=== PATIENT | female | born 1940 | race Caucasian/White ===

== ENCOUNTER 2019-11-09 20:58 | Emergency (ER) | payer MEDICARE, OTHER ==
[2019-11-09] MEDS ORDERED: LORazepam 0.5 MG Tab PO ONE (21:33)
[2019-11-09] MEDS ORDERED: Diphtheria,Pertussis(Acell),Tetanus Vaccine 0.5 ML Syringe IM ONE (21:33)
[2019-11-09] MEDS ORDERED: Lidocaine 1% 10 ML MDV INJECT ONE (21:33)
[2019-11-09] MEDS ORDERED: LORazepam 0.5 MG Tab ONE (22:17)
--- NOTE | 2019-11-09 22:23 | EDM.PDOC ---
ED HPI GENERAL MEDICAL PROBLEM - General Chief Complaint: Laceration Stated Complaint: LACERATION TO RT FOREARM Time Seen by Provider: 11/09/19 21:15 Source of Information: Reports: Patient History Limitations: Reports: No Limitations - History of Present Illness INITIAL COMMENTS - FREE TEXT/NARRATIVE: Patient is a 79-year-old female who presents to the emergency department with complaints of a laceration to her right forearm. She states that she was in [employer] shopping for earrings. She reached up to grab a pair of earrings and the display came down hitting her on the arm. EMS was on scene and provided wound care. She came in by private vehicle. She is unsure when her last tetanus vaccination was. Right Arm Pain Score (Numeric/FACES): 8 - Related Data Allergies Allergy/AdvReac Type Severity Reaction Status Date / Time codeine Allergy Itching Verified 11/09/19 21:18 hydromorphone [From Dilaudid] Allergy Respiratory Verified 11/09/19 21:18 Depression Penicillins Allergy Hives Verified 11/09/19 21:18 Past Medical History HEENT History: Reports: Macular Degeneration Cardiovascular History: Reports: High Cholesterol, Hypertension Gastrointestinal History: Reports: Bowel Obstruction Social & Family History - Tobacco Use Smoking Status *Q: Never Smoker Second Hand Smoke Exposure: No - Caffeine Use Caffeine Use: Reports: Coffee - Recreational Drug Use Recreational Drug Use: No ED ROS GENERAL - Review of Systems Review Of Systems: Comprehensive ROS is negative, except as noted in HPI. ED EXAM, SKIN/RASH Exam: See Below Exam Limited By: No Limitations General Appearance: Alert, WD/WN, No Apparent Distress Respiratory/Chest: No Respiratory Distress, Lungs Clear, Normal Breath Sounds, No Accessory Muscle Use, Chest Non-Tender Cardiovascular: Normal Peripheral Pulses, Regular Rate, Rhythm, No Edema, No Gallop, No JVD, No Murmur, No Rub Skin: Warm, Dry, Normal Color, Other (4.5 cm laceration to right dorsal forearm. Adipose tissue protruding. No active bleeding. Patient also has a 1 cm skin tear to her right upper arm.) ED SKIN PROCEDURES - Laceration/Wound Repair Right Dorsal Arm Appearance: Subcutaneous Distal NVT: Neuro & Vascular Intact Anesthetic Type: Local Local Anesthesia - Lidocaine (Xylocaine): 1% Plain Local Anesthetic Volume: 2cc Skin Prep: Chlorhexidine (Hibiciens), Saline Exploration/Debridement/Repair: Wound Explored, In a Bloodless Field, No Foreign Material Found Closed with: Sutures Lac/Wound length In cm: 4.5 Suture Size: 4-0 # of Sutures: 7 Suture Type: Nylon Sterile Dressing Applied: Nurse Tetanus Status Addressed: Yes Complications: No Course - Vital Signs Last Recorded V/S: Last Vital Signs Temp 99.1 F 11/09/19 21:14 Pulse 82 11/09/19 21:14 Resp 16 11/09/19 21:14 BP 226/110 H 11/09/19 21:14 Pulse Ox 97 11/09/19 21:14 - Orders/Labs/Meds Orders: Active Orders 24 hr Category Date Time Status Vaccines to be Administered [RC] PER UNIT ROUTINE Care 11/09/19 21:33 Active Meds: Medications Discontinued Medications Generic Name Dose Route Start Last Admin Trade Name Freq PRN Reason Stop Dose Admin Diphtheria/Tetanus/Acell Pertussis 0.5 ml 11/09/19 21:33 Adacel IM 11/09/19 21:34 .ONCE ONE Lidocaine HCl 10 ml 11/09/19 21:33 Xylocaine 1% INJECT 11/09/19 21:34 ONETIME ONE Lorazepam 0.5 mg 11/09/19 21:33 Ativan PO 11/09/19 21:34 ONETIME ONE - Re-Assessments/Exams Free Text/Narrative Re-Assessment/Exam: 11/09/19 22:24 Bacitracin and Band-Aid applied to the skin tear on the right upper arm. Laceration to the right forearm was closed using sutures. See procedure notes for closure. Patient has a history of anxiety and was requesting something to help her relax little bit so she can sleep tonight. I have ordered Ativan 0.5 mg p.o. to be given. Tetanus vaccination will be updated today. Discharge instructions as documented. Departure - Departure Time of Disposition: 22:25 Disposition: Home, Self-Care 01 Condition: Good Clinical Impression: Laceration - Discharge Information *PRESCRIPTION DRUG MONITORING PROGRAM REVIEWED*: No *COPY OF PRESCRIPTION DRUG MONITORING REPORT IN PATIENT REJI: No Instructions: Sutures, [employer], or Adhesive Wound Closure, [id number] Referrals: PCP,None [Primary Care Provider] - Additional Instructions: You were seen in the emergency department today for a laceration to your right forearm. The wound was cleansed and closed with 7 sutures. These should stay intact for 7-10 days. After that time they may be removed in the clinic by a nurse. Keep the wound clean and dry. Wash with normal soap and water twice daily. Do not submerge the wound in water. Watch for signs of infection including increased redness, swelling, or purulent drainage. If these should occur, you should be seen either in the clinic or in the emergency department as antibiotic treatment may be needed. Return to the ER as needed. Sepsis Event Note (ED) - Evaluation Sepsis Screening Result: No Definite Risk - Focused Exam Vital Signs: Vital Signs Temp Pulse Resp BP Pulse Ox 11/09/19 21:14 99.1 F 82 16 226/110 H 97 - My Orders Last 24 Hours: My Active Orders 11/09/19 21:33 Vaccines to be Administered [RC] PER UNIT ROUTINE - Assessment/Plan Last 24 Hours: My Active Orders 11/09/19 21:33 Vaccines to be Administered [RC] PER UNIT ROUTINE
== END 2019-11-09 22:44 | disposition home or self-care (01) ==
LOC: JD.ED 20:58
DX: S51.811A Laceration without foreign body of right forearm, initial encounter (principal); I10 Essential (primary) hypertension; Z88.5 Allergy status to narcotic agent; Z88.0 Allergy status to penicillin; Z23 Encounter for immunization; W20.8XXA Other cause of strike by thrown, projected or falling object, initial encounter
CPT/HCPCS: 12002; 90471; 90715; 99282; A9270; J2001